=== PATIENT | male | born 2000 | race Two or more races ===

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

== ENCOUNTER 2020-11-23 19:02 | Emergency (ER) | payer SELFPAY ==
[2020-11-23 19:23] VITALS: BP 145/73; PULSE 55; TEMP 98.7; BMI 29.9
== END 2020-11-23 20:05 | disposition home or self-care (01) ==
LOC: JERFT 19:02
DX: L50.1 Idiopathic urticaria (principal)
CPT/HCPCS: 99281-25

== ENCOUNTER 2023-05-08 12:45 | Emergency (ER) | payer SELFPAY ==
[2023-05-08 13:00] VITALS: BP 105/60; PULSE 70; RESP 17; TEMP 98.5; BMI 33.3
[2023-05-08] MEDS ORDERED: DIPHTH,PERTUSS(ACELL),TET 0.5 ML DISP.SYRIN IM ONE ×2 (15:21→15:32)
[2023-05-08] MEDS ORDERED: LIDOCAINE HCL 2% (50ML VIAL) INF ONE (15:21)
[2023-05-08] MEDS ORDERED: LIDOCAINE HCL 2% (20ML MULTI-DOSE VIAL) ONE (15:32)
== END 2023-05-08 19:12 | disposition home or self-care (01) ==
LOC: JERFT 12:45
PROC: 0HQFXZZ Repair Right Hand Skin, External Approach (ICD-10-PCS; principal; 2023-05-08)
PROC: 3E0234Z Introduction of Serum, Toxoid and Vaccine into Muscle, Percutaneous Approach (ICD-10-PCS; 2023-05-08)
DX: S61.312A Laceration without foreign body of right middle finger with damage to nail, initial encounter (principal); W26.8XXA Contact with other sharp object(s), not elsewhere classified, initial encounter; Y93.89 Activity, other specified; Y92.009 Unspecified place in unspecified non-institutional (private) residence as the place of occurrence of the external cause
CPT/HCPCS: 73140-TC-LT-FY; 90715; 99283-25